=== PATIENT | female | born 1980 | race Hispanic/Latino ===

== ENCOUNTER 2017-05-20 17:13 | Inpatient (IN) | payer OTHER ==
--- NOTE | 2017-05-20 18:10 | Emergency Department Report ---
Chief Complaint: Neuro Symptoms/Deficit Stated Complaint: SEIZURES Time Seen by Provider: 05/20/17 18:01 - HPI History of Present Illness: Patient is a 36-year-old female who is presenting status post seizure. Patient has a history of non-Hodgkin lymphoma at the age of 15 and with remission at age 17 been treated. Patient has had one episode of seizure- like activity as a teenager after receiving vincristine. Patient was at home with parents and was at the dinner table when she was noted to have her eyes rolled into the back of her head and was noted to have convulsions. Mother tried to straighten her arms out and was unable to for several minutes. Once the convulsions. The patient was unresponsive for approximately 30 minutes. He is alert and awake now and states that she has no headache nausea vomiting diarrhea fever neck pain. She also has no recollection of the events in question. - ROS Review of Systems: Review of systems negative except for those elements in the HPI - Exam Vital Signs: Vital Signs 05/20/17 17:15 Temperature 98.7 F Pulse Rate 88 Respiratory 18 Rate Blood Pressure 113/67 O2 Sat by Pulse 91 Oximetry Physical Exam: Limited physical exam patient is alert and oriented 3 in no acute distress heart and lungs are normal with clear to auscultation and S1-S2 no murmurs gallops or rubs abdomen soft nontender neuro exam is grossly normal MSE screening note: Focused history and physical exam performed. Due to findings the following was ordered: ED seizure protocol has been initiated with seizure precautions patient removed May for further evaluation ED Disposition for MSE Condition: Stable Referrals: GEMINI ARBOLEDA MD [Primary Care Provider] - 3-5 Days
[2017-05-20 18:27] LABS: Basophils % (Auto) 0.4 % (0.0-1.8); Eosinophils % (Auto) 1.6 % (0.0-4.3); Hematocrit 38.7 % (30.3-42.9); Hemoglobin 13.1 gm/dl (10.1-14.3); Mean Corpuscular HGB Conc 34 % (30-34); Mean Corpuscular Hemoglobin 28 pg (28-32); Mean Corpuscular Volume 84 fl (79-97); Platelet Count 219 K/mm3 (140-440); Red Blood Count 4.61 M/mm3 (3.65-5.03); Red Cell Distribution Width 13.5 % (13.2-15.2); White Blood Count 9.8 K/mm3 (4.5-11.0)
[2017-05-20 18:37] LABS: Urine Drugs of Abuse Note Disclamer
[2017-05-20 18:52] LABS: Bilirubin,Urine NEG (Negative); Blood,Urine NEG (Negative); Ketones,Urine NEG (Negative); Leukocyte Esterase,Urine NEG (Negative); Mucus,Urine FEW /HPF; Nitrite,Urine NEG (Negative); Protein,Urine <15 mg/dL mg/dL (Negative); Urobilinogen,Urine < 2.0 mg/dL (<2.0)
[2017-05-20 18:52] LABS: Alanine Aminotransferase 36 units/L (7-56); Albumin 4.3 g/dL (3.9-5); Albumin/Globulin Ratio 1.5 %; Alkaline Phosphatase 79 units/L (35-129); Anion Gap 20 mmol/L; BUN/Creatinine Ratio 27; Blood Urea Nitrogen 16 mg/dL (7-17); Calcium 9.2 mg/dL (8.4-10.2); Carbon Dioxide 23 mmol/L (22-30); Chloride 100.1 mmol/L (98-107); Glucose 134 mg/dL (65-100); Potassium 4.6 mmol/L (3.6-5.0); Sodium 138 mmol/L (137-145); Total Protein 7.1 g/dL (6.3-8.2)
[2017-05-20] MEDS ORDERED: ATIVAN IM ONE ×2 (19:20→19:22)
[2017-05-20] MEDS ORDERED: ATIVAN ONE (19:23)
[2017-05-20] MEDS ORDERED: NACL 0.9% 1000 ML 1,000 ML IV ONE (20:21)
--- NOTE | 2017-05-20 20:28 | Emergency Department Report ---
ED Seizure HPI - General Chief Complaint: Neuro Symptoms/Deficit Stated Complaint: SEIZURES Time Seen by Provider: 05/20/17 18:01 Source: patient Mode of arrival: Wheelchair Limitations: No Limitations - History of Present Illness Initial Comments: 36 yo female who comes in today due to a witnessed seizure. Per the parents, the patient started to have a seizure which lasted for approximately 10 minutes around 5pm on today. Parents then called ems. Patient was postictal for approximately 30 minutes. No documented history of seizures. History of Non Hodgkins lymphoma which is in remission. Also a history of anxiety and PTSD. Another seizure was witnessed in the ED which lasted 2 minutes for which the patient received ativan. Patient seizure free currently. Mental status intact. MD Complaint: seizure -: This evening (5pm) Duration of Episode: 10 -: minutes(s) Witnessed:: Yes Trauma: No Seizure History: none Place: home Possible Precipitating Event: medication (restarted zoloft ) Associated Symptoms: denies other symptoms Treatments Prior to Arrival: none (ativan in the ED ) - Related Data Allergies Allergy/AdvReac Type Severity Reaction Status Date / Time vincristine Allergy Seizure Verified 05/20/17 17:21 ED Review of Systems ROS: Stated complaint: SEIZURES Other details as noted in HPI Constitutional: denies: chills, fever Eyes: denies: eye pain, eye discharge, vision change Respiratory: denies: cough, shortness of breath, wheezing Cardiovascular: denies: chest pain, palpitations Endocrine: no symptoms reported Gastrointestinal: denies: abdominal pain, nausea, diarrhea Genitourinary: denies: urgency, dysuria, discharge Musculoskeletal: denies: back pain, joint swelling, arthralgia Skin: denies: rash, lesions Neurological: denies: headache, weakness, paresthesias Psychiatric: denies: anxiety, depression Hematological/Lymphatic: denies: easy bleeding, easy bruising ED Past Medical Hx - Past Medical History Previous Medical History?: Yes Hx Diabetes: Yes (pre) Hx Psychiatric Treatment: Yes (PTSD,anxiety) Additional medical history: Non hodgkins age 15-chemo,radiation,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 Absent: respiratory distress - Cardiovascular Cardiovascular Exam: Present: regular rate, normal rhythm. Absent: systolic murmur, diastolic murmur, rubs, gallop - GI/Abdominal GI/Abdominal exam: Present: soft, normal bowel sounds - Extremities Exam Extremities exam: Present: normal inspection - Back Exam Back exam: Present: normal inspection - Neurological Exam Neurological exam: Present: alert, oriented X3 - Psychiatric Psychiatric exam: Present: normal affect, normal mood - Skin Skin exam: Present: warm, dry, intact, normal color. Absent: rash ED Course Vital Signs 05/20/17 05/20/17 05/20/17 17:15 19:27 19:33 Temperature 98.7 F Pulse Rate 88 130 H Respiratory 18 20 Rate Blood Pressure 113/67 Blood Pressure 120/68 110/63 [Right] O2 Sat by Pulse 91 93 Oximetry 05/20/17 05/20/17 05/20/17 19:43 19:44 19:46 Temperature Pulse Rate 117 H Respiratory 25 H Rate Blood Pressure 103/61 Blood Pressure [Right] O2 Sat by Pulse 92 92 97 Oximetry 05/20/17 05/20/17 05/20/17 19:49 19:51 19:53 Temperature Pulse Rate 113 H 117 H 112 H Respiratory 26 H 31 H 24 Rate Blood Pressure 103/61 103/61 103/61 Blood Pressure [Right] O2 Sat by Pulse 97 97 98 Oximetry 05/20/17 05/20/17 05/20/17 19:55 19:57 19:59 Temperature Pulse Rate 112 H 113 H 108 H Respiratory 21 21 19 Rate Blood Pressure 99/62 99/62 109/71 Blood Pressure [Right] O2 Sat by Pulse 98 88 94 Oximetry 05/20/17 05/20/17 05/20/17 20:00 20:03 20:05 Temperature Pulse Rate 111 H 108 H 111 H Respiratory 24 19 15 Rate Blood Pressure 109/71 109/71 99/69 Blood Pressure [Right] O2 Sat by Pulse 92 88 92 Oximetry 05/20/17 05/20/17 05/20/17 20:07 20:09 20:10 Temperature 99 F Pulse Rate 113 H 112 H Respiratory 24 22 20 Rate Blood Pressure 99/69 99/69 Blood Pressure 99/69 [Right] O2 Sat by Pulse 89 91 94 Oximetry 05/20/17 05/20/17 05/20/17 20:11 20:13 20:15 Temperature Pulse Rate 112 H 110 H 111 H Respiratory 17 18 15 Rate Blood Pressure 99/69 99/69 99/72 Blood Pressure [Right] O2 Sat by Pulse 93 88 89 Oximetry 05/20/17 05/20/17 05/20/17 20:17 20:21 20:25 Temperature Pulse Rate 111 H 107 H 107 H Respiratory 21 24 23 Rate Blood Pressure 99/69 99/69 99/69 Blood Pressure [Right] O2 Sat by Pulse 91 91 91 Oximetry 05/20/17 05/20/17 05/20/17 20:30 20:35 20:41 Temperature Pulse Rate 102 H 107 H 101 H Respiratory 19 22 20 Rate Blood Pressure 86/64 86/64 86/64 Blood Pressure [Right] O2 Sat by Pulse 92 91 92 Oximetry 05/20/17 05/20/17 05/20/17 20:45 20:51 20:55 Temperature Pulse Rate 104 H 98 H 96 H Respiratory 18 24 19 Rate Blood Pressure 100/58 86/64 86/64 Blood Pressure [Right] O2 Sat by Pulse 93 93 95 Oximetry 05/20/17 05/20/17 05/20/17 21:00 21:05 21:11 Temperature Pulse Rate 99 H 97 H 99 H Respiratory 21 17 23 Rate Blood Pressure 108/65 108/65 108/65 Blood Pressure [Right] O2 Sat by Pulse 93 93 91 Oximetry 05/20/17 05/20/17 05/20/17 21:15 21:20 21:53 Temperature Pulse Rate 96 H 103 H Respiratory 15 22 Rate Blood Pressure 96/59 108/65 108/65 Blood Pressure [Right] O2 Sat by Pulse 90 92 88 Oximetry 05/20/17 05/20/17 05/20/17 21:55 22:00 22:05 Temperature Pulse Rate 98 H 100 H 100 H Respiratory 24 22 24 Rate Blood Pressure 102/68 98/63 98/63 Blood Pressure [Right] O2 Sat by Pulse 93 93 93 Oximetry 05/20/17 05/20/17 05/20/17 22:11 22:15 22:21 Temperature Pulse Rate 100 H 100 H 100 H Respiratory 25 H 19 25 H Rate Blood Pressure 98/63 104/67 96/59 Blood Pressure [Right] O2 Sat by Pulse 93 93 93 Oximetry 05/20/17 05/20/17 22:25 22:31 Temperature Pulse Rate 117 H 112 H Respiratory 27 H 20 Rate Blood Pressure 96/59 96/59 Blood Pressure [Right] O2 Sat by Pulse 90 90 Oximetry - Reevaluation(s) Reevaluation #1: 05/21/17 00:12 Workup unremarkable. Plan to admit the patient overnight for observation. Reevaluation #2: 05/21/17 00:37 Patient to be admitted for observation secondary to seizures. ED Medical Decision Making - Lab Data Result diagrams: 05/20/17 18:13 05/20/17 18:13 - EKG Data -: EKG Interpreted by Me Rate: tachycardia (Rate-114) - EKG Data When compared to previous EKG there are: previous EKG unavailable Interpretation: other (sinus tachycardia ) - Radiology Data Radiology results: report reviewed Head CT-no acute pathology CXR-no acute pathology - Medical Decision Making New onset seizure disorder Pseudo seizures Anxiety PTSD Medication non-compliance - Differential Diagnosis New onset seizure disorder, pseudo seizures, PTSD, anxiety Critical care attestation.: If time is entered above; I have spent that time in minutes in the direct care of this critically ill patient, excluding procedure time. ED Disposition Clinical Impression: Seizure, Anxiety, PTSD (post-traumatic stress disorder), Noncompliance with medication regimen Disposition: OP ADMIT IP TO THIS HOSP Is pt being admited?: Yes Does the pt Need Aspirin: No Condition: Stable Referrals: GEMINI ARBOLEDA MD [Primary Care Provider] - 3-5 Days Time of Disposition: 00:19
--- NOTE | 2017-05-20 20:59 | XRay Report ---
FINAL REPORT EXAM: XR CHEST 1V AP HISTORY: chest pain TECHNIQUE: upright single view chest PRIORS: None. FINDINGS: Cardiac and mediastinal contours are unremarkable. No focal pulmonary infiltrate is identified. No pleural fluid collection seen. Pulmonary vasculature is unremarkable. IMPRESSION: Negative single-view chest
--- NOTE | 2017-05-20 22:52 | Cat Scan Report ---
FINAL REPORT EXAM: CT HEAD/BRAIN WO CON HISTORY: Seizure TECHNIQUE: Axial noncontrast CT images of the brain Total exam DLP 1075.62 mGy-cm FINDINGS: There is normal colorado-white differentiation. There are high left parietal subcortical white matter ill-defined hypodensities most suggestive of small vessel disease/white-matter disease. There is a completed right external capsule 5 millimeter lacunar infarct. There are no acute extra-axial fluid collections. There are no intraparenchymal blood products. Posterior fossa is unremarkable. There is no midline shift or mass effect. There is mild prominence of the left temporal tip incompletely assessed. Ill-defined left cerebellar hypodensity which may represent volume averaging but cerebellar infarct cannot be excluded. Orbital cones and apices are unremarkable. Right maxillary sinus diffuse mucosal thickening. Mild ethmoid air cell disease. IMPRESSION: High left parietal subcortical white matter ill-defined hypodensities and completed right external capsule lacunar infarct. These findings are atypical for a patient at 36 years of age. Mildly prominent left temporal tip. Hypodense focus in the left cerebellum may represent volume averaging but cerebellar infarct cannot be excluded. Recommend MRI brain with diffusion-weighted imaging. No blood products. No transcortical infarct. Right maxillary sinus mucosal thickening.
[2017-05-21] MEDS ORDERED: ZOFRAN IV PRN (01:15)
[2017-05-21] MEDS ORDERED: TYLENOL PO PRN (01:15)
[2017-05-21] MEDS ORDERED: DULCOLAX PR PRN (01:15)
[2017-05-21] MEDS ORDERED: MILK OF MAGNESIA PO PRN (01:15)
[2017-05-21] MEDS ORDERED: SODIUM CHLORIDE FLUSH SYRINGE 10 ML IV PRN (01:15)
[2017-05-21] MEDS ORDERED: ATIVAN IV PRN (01:15)
--- NOTE | 2017-05-21 01:19 | History and Physical Report ---
History of Present Illness Date of examination: 05/21/17 History of present illness: 36-year-old lady with a history of non-Hodgkin's lymphoma diagnosed at age 15, PTSD, anxiety, diabetes was brought to the emergency room because she had a seizure today that lasted for 10 minutes, she had another seizure, generalized tonic-clonic in fast track. Patient is postictal, review of system unobtainable Mom states that patient had been off her Zoloft for 1 month, she was restarted PAST MEDICAL HISTORY:non-Hodgkin's lymphoma diagnosed at age 15, PTSD, anxiety, diabetes PAST SURGICAL HISTORY: PDA repair, bilateral inguinal hernia surgery, 27 other surgeries FAMILY HISTORY: Hypertension SOCIAL HISTORY: Denies alcohol, tobacco, drugs Medications and Allergies Allergies Allergy/AdvReac Type Severity Reaction Status Date / Time vincristine Allergy Seizure Verified 05/20/17 17:21 Home Medications Medication Instructions Recorded Confirmed Last Taken Type Levothyroxine [Synthroid] 75 mcg PO QAM 05/21/17 05/21/17 05/20/17 09:00 History Multivitamin [Multiple Vitamins] 1 tab PO DAILY 05/21/17 05/21/17 05/19/17 09: 00 History Sertraline [Zoloft] 100 mg PO Q12HR 05/21/17 05/21/17 05/19/17 09:00 History Simvastatin 40 mg PO QDAY 05/21/17 05/21/17 05/19/17 21:00 History busPIRone [Buspar] 5 mg PO BID 05/21/17 05/21/17 05/20/17 09:00 History hydrOXYzine PAMOATE [Vistaril] 25 mg PO BID PRN 05/21/17 05/21/17 05/19/17 21: 00 History Aspirin [Aspirin BABY CHEW TAB] 81 mg PO QDAY #30 tab.chew 05/22/17 Unknown Rx Divalproex [Mike Newman] 250 mg PO BID #60 tablet 05/22/17 Unknown Rx Exam - Physical Exam Narrative exam: Gen. appearance: Patient lying in bed in no acute distress HEENT: Normocephalic/atraumatic, pupils equal round reactive to light, extra occular movement intact, no scleral icterus, no JVD or thyromegaly or nodule, neck is supple, mucous membrane moist, no erythema or exudate Heart: S1-S2, regular rate and rhythm Lungs: Clear to auscultation bilateral breathing comfortable Abdomen: Positive bowel sounds, nontender, nondistended, no organomegaly Extremities: No edema, cyanosis, clubbing Neuro:: Lethargic but arousable Skin: No rash, nodules, warm dry - Constitutional Vitals: Temp Pulse Resp BP Pulse Ox 99 F 112 H 20 96/59 90 05/20/17 20:09 05/20/17 22:31 05/20/17 22:31 05/20/17 22:31 05/20/17 22:31 Results - Labs CBC & Chem 7: 05/22/17 04:59 05/22/17 04:59 Labs: Abnormal lab results 05/20/17 05/20/17 Range/Units 18:13 19:54 Creatinine 0.6 L (0.7-1.2) mg/dL Glucose 134 H (65-100) mg/dL POC Glucose 152 H (70-105) - Imaging and Cardiology Chest x-ray: image reviewed CT Scan - head: report reviewed Assessment and Plan Assessment Possible stroke onset seizure Diabetes PTSD Anxiety Non-Hodgkin lymphoma Plan Admit medicine obtain MRI, carotid, echo Start aspirin, statin, do checks, swallow screen consult neurology, physical and occupational therapy load with [facility], started theativa as needed for Seizure DVT prophylaxis
[2017-05-21] MEDS ORDERED: KEPPRA 1,000 MG/NS 0.75% 100ML 1,000 MG/100 ML BAG IV ONE ×2 (03:54→05:00)
[2017-05-21] MEDS ORDERED: D50W (25GM) Vial IV PRN (04:11)
[2017-05-21] MEDS: NOVOLOG SUB-Q SCH ×4 (08:00→22:03)
[2017-05-21] MEDS ORDERED: NACL 0.9% 1000 ML 1,000 ML IV ONE (11:00)
--- NOTE | 2017-05-21 13:38 | Magnetic Resonance Report ---
MRI of the brain without contrast. History: Stroke. Procedure: Routine brain protocol. Findings: The posterior fossa appears normal. The ventricles are normal in size and contour. There are no masses or extra-axial collections. There is a chronic lacunar infarct in the right posterior basal ganglia corresponding to the hypodensity seen on a current cranial CT. There is no evidence of restricted diffusion. The colorado-white matter junction is normal. There is extensive mucoperiosteal thickening in the right maxillary sinus with minimal changes in the ethmoid air cells. Minimal inflammatory changes are seen in the left mastoid. The remaining visualized extra and structures are unremarkable. Impression: No acute findings. A chronic lacunar infarct is seen in the right basal ganglia. 2. Chronic sinusitis and mild left mastoiditis.
--- NOTE | 2017-05-21 13:39 | Consultation ---
History of Present Illness Consult date: 05/21/17 Reason for Consult: New onset seizueres History of present illness: This 36 year old female with past history of Non-Hodgkins Lymphoma, presented yesterday to the ER with generalized seizures, for the first time. The patient has a complicated history of patent ductus arteriosis repaired at age 7, then diagnosis of lymphoma at age 15. 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 At diagnosis it was stage 1. She underwent chemotherapy, had remission, then another recurrence which involved multiple lymph nodes above and below the diaphragm. She was then treated with sternal radiation and stem cell transplant. She was in remission by age 17 and has had no recurrence. Because of the trauma of cancer treatment, the patient has suffered from PTSD and anxiety disorder. She is followed by psychiatrist. 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 The patient was finishing dinner on the day of admission when her mother noted her eyes had rolled back, she was unresponsive and shaking. She was brought to the ER. She became responsive after 30 min. There was no incontinence or tongue biting. The patient had another seizure in the ER, which responded to Ativan. She is admitted for evaluation of these spells as well as possible infarct noted on CT. Of interest is the fact that the patient's mother has noted that for the last 3 months, Tegan has been having spells of staring and unresponsiveness. She may have several of these per month, that are noticed by her mother. The patient also just came back from a month trip to [place], during which she lost some of her medication for her anxiety diagnosis. She was without them for about 2 weeks, then restarted Zoloft at 100 mg BID upon returning home. The patient has had an MRI, results are pending. Echocardiogram is suggestive of septal defect, carotid ultrasound report is pending. Past History Past Medical History: cancer, hypothyroidism, other (congenital heart disease, lymphoma, prediabetic). denies: sarcoidosis Past Surgical History: Other (repair of patent ductus at age 7) Social history: single (Nonsmoker, no alcohol.), other (Nonsmoker, nondrinker.) Family history: CAD, diabetes, hypertension, stroke (No syblings or children.) Medications and Allergies Allergies Allergy/AdvReac Type Severity Reaction Status Date / Time vincristine Allergy Seizure Verified 05/20/17 17:21 Home Medications Medication Instructions Recorded Confirmed Last Taken Type Levothyroxine [Synthroid] 75 mcg PO QAM 05/21/17 05/21/17 05/20/17 09:00 History Multivitamin [Multiple Vitamins] 1 tab PO DAILY 05/21/17 05/21/17 05/19/17 09: 00 History Sertraline [Zoloft] 100 mg PO Q12HR 05/21/17 05/21/17 05/19/17 09:00 History Simvastatin [Simvastatin] 40 mg PO QDAY 05/21/17 05/21/17 05/19/17 21:00 History busPIRone [Buspar] 5 mg PO BID 05/21/17 05/21/17 05/20/17 09:00 History hydrOXYzine PAMOATE [Vistaril] 25 mg PO BID PRN 05/21/17 05/21/17 05/19/17 21: 00 History Active Meds: Active Medications Acetaminophen (Tylenol) 650 mg PO Q4H PRN PRN Reason: Pain MILD(1-3)/Fever >100.5/VU Aspirin (Baby Aspirin) 81 mg PO QDAY ANANTH Bisacodyl (Dulcolax) 10 mg PA QDAY PRN PRN Reason: Constipation unrelieved by MOM Dextrose (D50w (25gm) Vial) 25 gm IV PRN PRN PRN Reason: Hypoglycemia Divalproex Sodium (Depakote Dr) 250 mg PO BID ANANTH Insulin Aspart (Novolog) 0 units SUB-Q ACHS ANANTH PRN Reason: Protocol Last Admin: 05/21/17 11:57 Dose: Not Given Lorazepam (Ativan) 1 mg IV Q4H PRN PRN Reason: Seizures Magnesium Hydroxide (Milk Of Magnesia) 30 ml PO Q4H PRN PRN Reason: Constipation Ondansetron HCl (Zofran) 4 mg IV Q8H PRN PRN Reason: N/V unrelieved by Reglan Sodium Chloride (Sodium Chloride Flush Syringe 10 Ml) 10 ml IV PRN PRN PRN Reason: LINE FLUSH Review of Systems Constitutional: fatigue, chronic pain, no weight loss, no weight gain, no fever , no chills, no sweats, no night sweats, no anorexia, no weakness, no malaise, no lethargy, no chronic headaches, no poor appetite Eyes: bilateral: blurred vision Ears, nose, mouth and throat: no ear pain, no tinnitis, no decreased hearing, no dysphagia, no hoarseness, no headache Cardiovascular: no chest pain, no orthopnea, no palpitations, no rapid/ irregular heart beat, no shortness of breath Respiratory: cough, no cough with sputum, no congestion Gastrointestinal: no abdominal pain, no nausea, no vomiting, no diarrhea, no constipation, no change in bowel habits Genitourinary Female: no dysuria, no urinary frequency, no urgency Menstruation: other (No menses since completed chemotherapy) Musculoskeletal: no neck stiffness, no neck pain Neurological: no head injury, no transient paralysis, no parathesias, no numbness, no tingling, no seizures, no syncope, no tremors, no ataxia, no lack of coordination, no vertigo, no headaches, no change in speech, no change in mentation, no confusion, no memory loss Psychiatric: anxiety, anxiety attacks Physical Examination - Vital Signs Vital Signs: Vital Signs Temp Pulse Resp BP Pulse Ox 98.7 F 88 18 113/67 91 05/20/17 17:15 05/20/17 17:15 05/20/17 17:15 05/20/17 17:15 05/20/17 17:15 - Constitutional General appearance: comfortable - EENT EENT: Present: PERRL, mucous membranes moist, hearing intact, vision intact - Respiratory Respiratory: Present: chest non-tender, lungs clear, normal breath sounds, no respiratory distress - Cardiovascular Cardiovascular: Present: regular rate, normal S1, normal S2, no murmurs Extremities: Present: no peripheral edema bilatateraly, no clubbing, cyanosis, no inflammation - Gastrointestinal Gastrointestinal: Present: soft, non-tender - Integumentary Integumentary: Present: normal - Neurologic Cranial nerve examination: PERRL, EOMI, V1/V2/V3 grossly intact, face symmetric , tongue midline, intact shoulder shrug, other (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.) Speech examination: intact Sensorimotor examination: pronator drift Detailed motor examination: grossly full strength in, full strength in all leatha Motor examination - right side: 5/5: biceps, triceps, wrist flexion, wrist extension, hip flexors, knee extensors, dorsiflexion Motor examination - left side: 5/5: biceps, triceps, wrist flexion, wrist extension, hip flexors, knee extensors, dorsiflexion, toe extension (EHL), plantarflexion Detailed sensory examination: intact Reflexes: 1+: ankle, bicep, knee, tricep Cerebellar examination: other (cerebellar functions intact) Results - Laboratory Findings CBC and BMP: 05/20/17 18:13 05/20/17 18:13 Abnormal Lab Findings: Abnormal Labs 05/20/17 05/20/17 18:13 19:54 Creatinine 0.6 L Glucose 134 H POC Glucose 152 H Assessment and Plan New onset seizures in a patient with prior diagnosis of lymphoma, and history of PTSD, anxiety. Awaiting MRI report. Question if medication withdrawal and replacement may have triggered this. Previous spells witnessed by patient's mother of staring and unresponsiveness are suspicious for seizure disorder. Plan - await results of MRI. Will begin Depakote 250 mg BID as this med may also be beneficial to her anxiety disorder. EEG - done. Aspirin 81 mg/day.
[2017-05-21] MEDS: BABY ASPIRIN PO SCH (14:15)
--- NOTE | 2017-05-21 18:13 | Event Note ---
Date: 05/21/17 Patient was out on procedure during my multiple visits. records reviewed. will continue current therapy
[2017-05-22 05:42] LABS: Basophils % (Auto) 0.3 % (0.0-1.8); Eosinophils % (Auto) 2.4 % (0.0-4.3); Hematocrit 32.5 % (30.3-42.9); Hemoglobin 10.7 gm/dl (10.1-14.3); Mean Corpuscular HGB Conc 33 % (30-34); Mean Corpuscular Hemoglobin 28 pg (28-32); Mean Corpuscular Volume 84 fl (79-97); Platelet Count 194 K/mm3 (140-440); Red Blood Count 3.86 M/mm3 (3.65-5.03); Red Cell Distribution Width 13.7 % (13.2-15.2); White Blood Count 7.9 K/mm3 (4.5-11.0)
[2017-05-22 05:52] LABS: Anion Gap 15 mmol/L; BUN/Creatinine Ratio 18; Blood Urea Nitrogen 7 mg/dL (7-17); Calcium 8.4 mg/dL (8.4-10.2); Carbon Dioxide 23 mmol/L (22-30); Chloride 106.3 mmol/L (98-107); Glucose 85 mg/dL (65-100); Potassium 3.9 mmol/L (3.6-5.0); Sodium 140 mmol/L (137-145)
[2017-05-22 06:03] LABS: Cholesterol 143 mg/dL (50-199); HDL Cholesterol 61 mg/dL (40-59); LDL Cholesterol,Direct 68 mg/dL (50-130); Triglycerides 71 mg/dL (2-149)
[2017-05-22] MEDS: NOVOLOG SUB-Q SCH ×2 (07:30→11:40)
--- NOTE | 2017-05-22 11:09 | Discharge Summary ---
Providers - Providers Date of Admission: 05/21/17 01:15 Attending physician: ZULEYMA CHEW MD 05/21/17 01:16 Occupational Therapy Evaluate and Treat [CONS] Routine Comment: Reason For Exam: Neuro deficits Physical Therapy Evaluation and Treat [CONS] Routine Comment: Reason For Exam: Neuro deficits 05/21/17 04:10 Consult to Physician [CONS] Routine Consulting Provider: JANNY SORIANO Reason For Exam: possible cva/sz Place consult to:: neuro Notified:: n Comment:: added to list Primary care physician: GEMINI ARBOLEDA Hospitalization Reason for admission: SEIZURE Condition: Stable Hospital course: Patient is a 36-year-old lady with a history of non-Hodgkin's lymphoma diagnosed at age 15, PTSD, anxiety, diabetes was brought to the emergency room because she had a seizure today that lasted for 10 minutes, she had another seizure, generalized tonic-clonic in fast track. Patient is postictal, on admission,. was seen by neurology and per mother patient with previous spells withnessed by patients mother of staring and unresponsive. Mom states that patient had been off her Zoloft for 1 month, she was restarted New onset seizure diagnosed, patient started on depakote. MRI positive for old lacunar infarct, patient is unaware of ever having any incident. Counselling provided according [facility] state laws on driving, diving and operating of motorized vehicle, patients states she does not do such due to severe anxiety. she will follow with pyschiatrist and also with Neurologist of choice. she was started on daily ASA. patient was noted to be hypotensive although asymtomatic, she states this is normal despite multiple fluid resuscitation, no change was noted. Seizure Lacunar infarct Diabetes PTSD Anxiety Non-Hodgkin lymphoma HYPOTENSION Disposition: - TO HOME OR SELFCARE Time spent for discharge: 35 mins Core Measure Documentation - Palliative Care Palliative Care/ Comfort Measures: Not Applicable - Core Measures Any of the following diagnoses?: none Exam - Physical Exam Narrative exam: Gen. appearance: Patient lying in bed in no acute distress HEENT: Normocephalic/atraumatic, pupils equal round reactive to light, extra occular movement intact, no scleral icterus, no JVD or thyromegaly or nodule, neck is supple, mucous membrane moist, no erythema or exudate Heart: S1-S2, regular rate and rhythm Lungs: Clear to auscultation bilateral breathing comfortable Abdomen: Positive bowel sounds, nontender, nondistended, no organomegaly Extremities: No edema, cyanosis, clubbing Neuro:: AAOX3 Skin: No rash, nodules, warm dry - Constitutional Vitals: Temp Pulse Resp BP Pulse Ox 99.0 F 79 20 86/44 93 05/22/17 04:44 05/22/17 04:44 05/22/17 04:44 05/22/17 04:44 05/22/17 04:44 Plan Activity: no driving until cleared by PCP (or neurologist according [place] law), fall precautions Diet: low cholesterol Special Instructions: record daily BP diary Additional Instructions: follow with neurologist in 2 weeks Follow up with: GEMINI ARBOLEDA MD [Primary Care Provider] - 3-5 Days Prescriptions: Aspirin [Aspirin BABY CHEW TAB] 81 mg PO QDAY #[address] [Depakote Dr] 250 mg PO BID #60 tablet
[2017-05-22] MEDS: BABY ASPIRIN PO SCH (11:29)
[2017-05-22] MEDS ORDERED: NACL 0.9% 1000 ML 1,000 ML IV ONE (12:00)
[2017-05-22 12:15] VITALS: BP 92/56
--- NOTE | 2017-06-01 13:36 | Vascular Lab Report ---
CAROTID DUPLEX STUDY: RIGHT PSVEDV CCA [id number] CCA [id number] ICA PROX:[id number] ICA MID:[id number] ICA DIST:[id number] ECA: 121 VERT: 53 17 LEFT PSVEDV CCA [id number] CCA DIST:[id number] ICA PROX:[id number] ICA MID:[id number] ICA DIST:[id number] ECA: 144 VERT: 86 24 REASON FOR EXAM: Carotid artery stenosis. COMMENTS ON THE RIGHT: Doppler frequency analysis is consistent with 1 to 15 percent diameter reduction of the internal carotid artery. No plaque is seen. The common carotid artery is patent. The external carotid artery is patent. The vertebral artery has antegrade flow. COMMENTS ON THE LEFT: Doppler frequency analysis is consistent with 1 to 15 percent diameter reduction of the internal carotid artery. No plaque is seen. The common carotid artery is patent. The external carotid artery is patent. The vertebral artery has antegrade flow. IMPRESSION: Normal carotid artery study.
== END 2017-05-22 16:00 | disposition home or self-care (01) | DRG 65 ==
LOC: ED 17:13 → 4A 05-21 01:15
PROVIDERS: ADMIT Internal Medicine; ATTEND Internal Medicine
DX: I63.8 Other cerebral infarction (principal); C85.90 Non-Hodgkin lymphoma, unspecified, unspecified site; R56.9 Unspecified convulsions; Z88.8 Allergy status to other drugs, medicaments and biological substances; F41.9 Anxiety disorder, unspecified; F43.10 Post-traumatic stress disorder, unspecified; Z91.19 Patient's noncompliance with other medical treatment and regimen; E11.9 Type 2 diabetes mellitus without complications; Z82.49 Family history of ischemic heart disease and other diseases of the circulatory system; I95.9 Hypotension, unspecified
CPT/HCPCS: 36415; 70450; 70551; 71010; 80048; 80053; 80061; 80164; 80307; 81001; 81025; 82962; 85025; 93005; 93010; 93306; 93880; 94760; 95819; 96361; 96372; 96374; 99285; J1953; J2060; J7030

== ENCOUNTER 2018-03-25 13:33 | Emergency (ER) | payer SELFPAY ==
[2018-03-25] MEDS ORDERED: BOOSTRIX IM ONE (20:20)
[2018-03-25] MEDS ORDERED: TYLENOL #3 PO ONE (20:20)
--- NOTE | 2018-03-25 20:25 | Emergency Department Report ---
- General Chief Complaint: Wound/Laceration Stated Complaint: (L) EYEBROW LACERATION Time Seen by Provider: 03/25/18 20:20 Source: patient Mode of arrival: Ambulatory Limitations: No Limitations - History of Present Illness Initial Comments: This is a 37-year-old white female who presents for left eyebrow laceration status post ground-level fall today there was no LOC patient states I just tripped and hit my head on the corner of the table noted immediate blood by controlled by direct rash about patient there is no blurred vision no nausea vomiting no dizziness for 10 headache sharp no nosebleeds . Onset/Timin -: hour(s) Location: face Place: home Patient Tetanus UTD: No Context: accidental, fall Associated Symptoms: pain - Related Data Home Medications Medication Instructions Recorded Confirmed Last Taken Levothyroxine [Synthroid] 75 mcg PO QAM 05/21/17 05/21/17 05/20/17 09:00 Multivitamin [Multiple Vitamins] 1 tab PO DAILY 05/21/17 05/21/17 05/19/17 09:00 Sertraline [Zoloft] 100 mg PO Q12HR 05/21/17 05/21/17 05/19/17 09:00 Simvastatin 40 mg PO QDAY 05/21/17 05/21/17 05/19/17 21:00 busPIRone [Buspar] 5 mg PO BID 05/21/17 05/21/17 05/20/17 09:00 hydrOXYzine PAMOATE [Vistaril] 25 mg PO BID PRN 05/21/17 05/21/17 05/19/17 21:00 Previous Rx's Medication Instructions Recorded Last Taken Type Aspirin [Aspirin BABY CHEW TAB] 81 mg PO QDAY #30 tab.chew 05/22/[address] [Depakote Dr] 250 mg PO BID #60 tablet 05/22/17 Unknown Rx Acetaminophen/Codeine [Tylenol 1 tab PO Q6H PRN #12 tab 03/25/18 Unknown Rx /Codeine # 3 tab] Cephalexin [Keflex] 500 mg PO TID 10 Days #30 capsule 03/25/18 Unknown Rx Allergies Allergy/AdvReac Type Severity Reaction Status Date / Time vincristine Allergy Seizure Verified 03/25/18 13:52 ED Review of Systems ROS: Stated complaint: (L) EYEBROW LACERATION Other details as noted in HPI Constitutional: denies: chills, fever Eyes: denies: eye pain, eye discharge, vision change ENT: denies: ear pain, throat pain Respiratory: denies: cough, shortness of breath, wheezing Cardiovascular: denies: chest pain, palpitations Endocrine: no symptoms reported Gastrointestinal: denies: abdominal pain, nausea, diarrhea Genitourinary: denies: urgency, dysuria, discharge Musculoskeletal: denies: back pain, joint swelling, arthralgia Skin: other (left eyebrow laceration ). 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17 - Surgical History Additional Surgical History: 19 surgeries r/t chemo and stem cell transplant, open heart at age 7 - Social History Smoking Status: Never Smoker Substance Use Type: None - Medications Home Medications: Home Medications Medication Instructions Recorded Confirmed Last Taken Type Levothyroxine [Synthroid] 75 mcg PO QAM 05/21/17 05/21/17 05/20/17 09:00 History Multivitamin [Multiple Vitamins] 1 tab PO DAILY 05/21/17 05/21/17 05/19/17 09: 00 History Sertraline [Zoloft] 100 mg PO Q12HR 05/21/17 05/21/17 05/19/17 09:00 History Simvastatin 40 mg PO QDAY 05/21/17 05/21/17 05/19/17 21:00 History busPIRone [Buspar] 5 mg PO BID 05/21/17 05/21/17 05/20/17 09:00 History hydrOXYzine PAMOATE [Vistaril] 25 mg PO BID PRN 05/21/17 05/21/17 05/19/17 21: 00 History Aspirin [Aspirin BABY CHEW TAB] 81 mg PO QDAY #30 tab.chew 05/22/17 Unknown Rx Divalproex [Mike Newman] 250 mg PO BID #60 tablet 05/22/17 Unknown Rx Acetaminophen/Codeine [Tylenol 1 tab PO Q6H PRN #12 tab 03/25/18 Unknown Rx /Codeine # 3 tab] Cephalexin [Keflex] 500 mg PO TID 10 Days #30 capsule 03/25/18 Unknown Rx ED Physical Exam - General Limitations: No Limitations General appearance: alert, in no apparent distress - Head Head exam: Present: normocephalic, normal inspection - Expanded Head Exam Expanded Head exam: Present: laceration. Absent: abrasion, contusion, hematoma, racoon eyes, espinal's sign, tenderness of temporal artery, CSF rhinorrhea, CSF otorrhea - Eye Eye exam: Present: normal appearance, PERRL, EOMI Pupils: Present: normal accommodation - ENT ENT exam: Present: normal exam, normal orophraynx, mucous membranes moist, TM's normal bilaterally, normal external ear exam - Neck Neck exam: Present: normal inspection, full ROM. Absent: tenderness, meningismus, lymphadenopathy, thyromegaly - Expanded Neck Exam Expanded Neck exam: Absent: tenderness, midline deformity, anterior neck swelling, thyroid mass, carotid bruit, tracheal deviation - Respiratory Respiratory exam: Present: normal lung sounds bilaterally. Absent: respiratory distress, wheezes, rhonchi, chest wall tenderness - Cardiovascular Cardiovascular Exam: Present: regular rate, normal rhythm. Absent: systolic murmur, diastolic murmur, rubs, gallop - GI/Abdominal GI/Abdominal exam: Present: soft, normal bowel sounds. Absent: tenderness, bruit, hernia - Rectal Rectal exam: Present: deferred - Extremities Exam Extremities exam: Present: normal inspection - Back Exam Back exam: Present: normal inspection - Neurological Exam Neurological exam: Present: alert, oriented X3, normal gait, motor sensory deficit. Absent: CN II-XII intact, reflexes normal - Psychiatric Psychiatric exam: Present: normal affect, normal mood. Absent: anxious - Skin Skin exam: Present: warm, dry, intact, normal color. Absent: rash ED Course Vital Signs 03/25/18 13:53 Temperature 98.1 F Pulse Rate 86 Respiratory 18 Rate Blood Pressure 124/73 O2 Sat by Pulse 96 Oximetry - Laceration /Wound Repair Left Face Wound Location: face Wound Length (cm): 1 Wound's Depth, Shape: irregular Wound Explored: clean Irrigated w/ Saline (ccs): 30 Betadine Prep?: Yes Anesthesia: 1% Lidocaine Volume Anesthetic (ccs): 1 Wound Debrided: minimal Wound Repaired With: sutures Suture Size/Type: 5:0 Number of Sutures: 4 Layer Closure?: No Sterile Dressing Applied?: Yes Progress: 1 cm [id number] laceratoin wound cleaned with betadine solution , anesthesia with 1% lidocaine wound irrigated with sterile saline 30 cc's closed with 5.0 prolyen x 4 sutures and skin adhesive all bleeding is controlled pt given wound care instructions pt verbalized agreement and understanding of same. ED Medical Decision Making - Radiology Data Radiology results: report reviewed, image reviewed - Medical Decision Making forehead laceration Critical care attestation.: If time is entered above; I have spent that time in minutes in the direct care of this critically ill patient, excluding procedure time. ED Disposition Clinical Impression: Eyebrow laceration Qualifiers: Encounter type: initial encounter Laterality: left Qualified Code(s): S01.112A - Laceration without foreign body of left eyelid and periocular area, initial encounter Disposition: TO HOME OR SELFCARE Is pt being admited?: No Does the pt Need Aspirin: No Condition: Good Instructions: Laceration (ED) Prescriptions: Acetaminophen/Codeine [Tylenol /Codeine # 3 tab] 1 tab PO Q6H PRN #12 tab PRN Reason: Pain , Severe (7-10) Cephalexin [Keflex] 500 mg PO TID 10 Days #30 capsule Referrals: PRIMARY CARE, [Primary Care Provider] - 3-5 Days Forms: Work/School Release Form(ED) Time of Disposition: 20:24
[2018-03-25 20:38] VITALS: BP 136/72
== END 2018-03-25 20:36 | disposition home or self-care (01) ==
LOC: ED 13:33
DX: S01.112A Laceration without foreign body of left eyelid and periocular area, initial encounter (principal); E11.9 Type 2 diabetes mellitus without complications; F43.10 Post-traumatic stress disorder, unspecified; F41.9 Anxiety disorder, unspecified; Z88.8 Allergy status to other drugs, medicaments and biological substances; Z79.82 Long term (current) use of aspirin; W17.89XA Other fall from one level to another, initial encounter; Y93.89 Activity, other specified; Y92.89 Other specified places as the place of occurrence of the external cause; Y99.8 Other external cause status
CPT/HCPCS: 90471; 90715; 99282